=== PATIENT | male | born 1985 | race Caucasian/White ===

== ENCOUNTER 2018-01-09 10:08 | Day surgery (SDC) | payer OTHER ==
[~2018-01-09 10:08] MED LIST: ATROPINE 1 MG/10 ML SYRINGE IV; DEXAMETHASONE 4 MG/ML 1 ML INJ; EPHEDrine SULFATE 50 MG/5 ML SYG IV; FENTAnyl 50 MCG/ML VIAL; FENTAnyl 50 MCG/ML VIAL IV; GLYCOPYRROLATE 0.4 MG INJ; HYDROmorphONE (0.2 MG/ML) 10ML SYG IV; LABETALOL HCL 20MG INJ IV; LIDOCAINE 2% (SDV) 5 ML INJ; MEPERIDINE 25 MG INJ IV; MIDAZOLAM 1 MG/ML 2 ML INJ; MIDAZOLAM 1 MG/ML 2 ML INJ IV; NEOSTIGMINE 3 MG/3 ML SYRINGE; ONDANSETRON 4 MG INJ; OXYCODONE/ACETAMINOPHEN (5/325) TAB PO; PROPOFOL 20 ML; ROCURONIUM 50 MG INJ; SUCCINYLCHOLINE CHLORIDE 100 MG/5 ML SYG IV; hydrALAzine 20 MG INJ IV; morphine (1 MG/ML) 10ML SYRINGE IV
[2018-01-09] MEDS ORDERED: GELATIN SIZE 100 SPONGE (10:49)
[2018-01-09] MEDS ORDERED: BUPIVACAINE 0.25% (MPF) 30 ML INJ (10:50)
[2018-01-09] MEDS: BUPIVACAINE 0.25%/EPI (SDV) 30 ML INJ (11:53)
[2018-01-09] MEDS ORDERED: LABETALOL HCL 20MG INJ (12:00)
[2018-01-09] MEDS ORDERED: CEFAZOLIN 2 GM/50 ML (PMX) 50 ML IVPB (12:00)
[2018-01-09] MEDS ORDERED: LACTATED RINGER'S 1,000 ML IV* (12:00)
[2018-01-09] MEDS ORDERED: hydrALAzine 20 MG INJ (12:02)
[2018-01-09] MEDS: THROMBIN 5000 UNIT VIAL (12:31)
[2018-01-09] MEDS: HEMOSTATIC MATRIX SYG ZFS (12:32)
[2018-01-09] MEDS: POLYMYXIN/BACITRACIN 1L IRRIG (12:33)
[2018-01-09] MEDS: BETAMET NA PHOS/AC(6 MG/ML) 5ML INJ (13:46)
[2018-01-09] MEDS: ONDANSETRON 4 MG INJ IV (14:19)
[2018-01-09] MEDS: HYDROmorphONE (0.2 MG/ML) 10ML SYG IV ×5 (14:19→14:54)
[2018-01-09] MEDS: DIPHENHYDRAMINE 50 MG INJ IV (14:20)
[2018-01-09] MEDS ORDERED: ONDANSETRON 4 MG INJ IV (14:30)
[2018-01-09] MEDS ORDERED: NALOXONE (0.4 MG/ML) INJ IV (14:30)
[2018-01-09] MEDS ORDERED: ACETAMINOPHEN 325 MG TAB PO (14:30)
[2018-01-09] MEDS ORDERED: PROCHLORPERAZINE 10 MG TAB PO (14:30)
[2018-01-09] MEDS ORDERED: HYDROCODONE/APAP (5/325) TAB PO ×2 (14:30)
[2018-01-09] MEDS ORDERED: NACL 0.9% 3 ML SYG IV (14:30)
[2018-01-09] MEDS ORDERED: morphine SULFATE/PF (10 MG/10 ML) INJ (15:07)
== END 2018-01-09 16:17 | disposition home or self-care (01) ==
LOC: SDS 10:08
DX: M51.16 Intervertebral disc disorders with radiculopathy, lumbar region (principal); F41.9 Anxiety disorder, unspecified
CPT/HCPCS: 63030; 72100; 86900; 86901; 88304; 97161